=== PATIENT | female | born 2000 | race Caucasian/White ===

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

== ENCOUNTER 2021-06-14 00:01 | Emergency (ER) | payer OTHER ==
[2021-06-14 00:19] VITALS: BP 114/65; PULSE 110; TEMP 97.8; BMI 20.2
[2021-06-14] MEDS ORDERED: morphine CARPU-JECT 2 MG/1 ML DISP.SYRIN IVPUSH ONE (00:55)
[2021-06-14] MEDS ORDERED: SODIUM CHLORIDE 0.9% 500 ML INFUS.BAG IV ONE (00:56)
[2021-06-14] MEDS ORDERED: morphine CARPU-JECT 4 MG/1 ML DISP.SYRIN IVPUSH ONE (01:12)
[2021-06-14] MEDS ORDERED: morphine SULFATE 4 MG/ML VIAL ONE (01:24)
[2021-06-14 01:30] LABS: HEMATOCRIT 21.4 % (32.4-45.2); HEMOGLOBIN 7.3 GM/dL (10.7-15.3); MCH 23.8 pg (25.7-33.7); MCHC 34.3 g/dl (32.0-36.0); MEAN CELL VOLUME 69.5 fl (80-96); MEAN PLT VOLUME 8.2 fl (7.5-11.1); PLATELET COUNT 296 10^3/uL (134-434); RBC 3.09 M/mm3 (3.60-5.2); RDW 15.8 % (11.6-15.6); RETICULOCYTES 5.22 % (0.5-1.5); WHITE BLOOD COUNT 14.8 K/mm3 (4.0-10.0)
[2021-06-14 01:45] LABS: CALCIUM 8.9 mg/dL (8.5-10.1)
[2021-06-14 01:46] LABS: ALBUMIN 3.7 g/dl (3.4-5.0)
[2021-06-14 01:49] LABS: CREATININE 0.5 mg/dL (0.55-1.3)
[2021-06-14 01:51] LABS: BILIRUBIN,TOTAL 2.5 mg/dL (0.2-1); TOT PROT 7.6 g/dl (6.4-8.2)
[2021-06-14 09:52] LABS: ANISOCYTOSIS 1+; MACROCYTOSIS 0; SICKELED CELLS 2+
== END 2021-06-14 02:20 | disposition home or self-care (01) ==
LOC: JER 00:01
PROC: 3E033NZ Introduction of Analgesics, Hypnotics, Sedatives into Peripheral Vein, Percutaneous Approach (ICD-10-PCS; principal; 2021-06-14)
DX: D57.219 Sickle-cell/Hb-C disease with crisis, unspecified (principal)
CPT/HCPCS: 36415; 71046-TC-FY; 80053; 84703; 85025; 85045; 99284-25

== ENCOUNTER 2021-07-14 06:19 | Emergency (ER) | payer OTHER ==
[2021-07-14 06:49] VITALS: BMI 21.2
[2021-07-14] MEDS ORDERED: SODIUM CHLORIDE 1,000 ML IV STA ×2 (07:39→09:05)
[2021-07-14] MEDS ORDERED: ACETAMINOPHEN 1000 MG/100 ML BAG IVPB ONE (07:40)
[2021-07-14] MEDS ORDERED: ACETAMINOPHEN INJECTION 100 ML IVPB ONE (07:58)
[2021-07-14 08:56] LABS: HEMATOCRIT 22.4 % (32.4-45.2); HEMOGLOBIN 7.9 GM/dL (10.7-15.3); MCH 24.2 pg (25.7-33.7); MCHC 35.1 g/dl (32.0-36.0); MEAN CELL VOLUME 68.9 fl (80-96); MEAN PLT VOLUME 9.2 fl (7.5-11.1); PLATELET COUNT 268 10^3/uL (134-434); RBC 3.25 M/mm3 (3.60-5.2); RDW 18.2 % (11.6-15.6); RETICULOCYTES 5.51 % (0.5-1.5); WHITE BLOOD COUNT 14.7 K/mm3 (4.0-10.0)
[2021-07-14] MEDS ORDERED: morphine CARPU-JECT 4 MG/1 ML DISP.SYRIN IVPUSH ONE (09:05)
[2021-07-14 09:06] LABS: EPI CELLS >36 /uL (0-25.1); HYALINE CASTS 1 /uL (0-3.1); URINE APPEARANCE CLEAR; URINE BACTERIA 1211 /uL (0-1359); URINE BILIRUBIN NEGATIVE (NEGATIVE); URINE COLOR YELLOW; URINE GLUCOSE (UA) NEGATIVE (NEGATIVE); URINE KETONE NEGATIVE (NEGATIVE); URINE LEUK ESTERASE 1+ (NEGATIVE); URINE NITRITE NEGATIVE (NEGATIVE); URINE PROTEIN NEGATIVE (NEGATIVE); URINE RBC 5 /uL (0-23.9); URINE WBC 37 /uL (0-25.8)
[2021-07-14 09:15] LABS: CALCIUM 8.6 mg/dL (8.5-10.1)
[2021-07-14 09:16] LABS: ALBUMIN 4.2 g/dl (3.4-5.0); BLOOD UREA NITROGEN 5.8 mg/dL (7-18)
[2021-07-14 09:19] LABS: CREATININE 0.5 mg/dL (0.55-1.3)
[2021-07-14] MEDS ORDERED: morphine SULFATE 4 MG/ML VIAL ONE (09:19)
[2021-07-14 09:21] LABS: TOT PROT 7.9 g/dl (6.4-8.2)
[2021-07-14 10:17] VITALS: BP 105/67; PULSE 87; TEMP 98
[2021-07-14 13:25] LABS: ANISOCYTOSIS 2+; MACROCYTOSIS 0; TARGET CELLS 2+; TEAR DROP CELLS 1+
== END 2021-07-14 10:15 | disposition home or self-care (01) ==
LOC: JERFT 06:19 → JER 06:19 → JERFT 10:15
PROC: 3E033GC Introduction of Other Therapeutic Substance into Peripheral Vein, Percutaneous Approach (ICD-10-PCS; principal; 2021-07-14)
DX: D57.00 Hb-SS disease with crisis, unspecified (principal)
CPT/HCPCS: 36415; 71046-TC-FY; 80053; 81003; 83615; 84703; 85025; 85045; 87086; 99284-25

== ENCOUNTER 2021-12-24 19:07 | Emergency (ER) | payer OTHER ==
[2021-12-24 19:34] VITALS: BP 128/75; PULSE 103; RESP 17; TEMP 98.3; BMI 21.2
[2021-12-24] MEDS ORDERED: LACTATED RINGERS SOLUTION 1000 ML INFUS.BAG IV ONE ×2 (20:48→22:21)
[2021-12-24 21:46] LABS: BASO % 1.2 % (0-2.0); HEMATOCRIT 22.9 % (32.4-45.2); HEMOGLOBIN 7.9 GM/dL (10.7-15.3); LYMPH % 36.3 % (8-40); MCH 24.1 pg (25.7-33.7); MCHC 34.4 g/dl (32.0-36.0); MEAN CELL VOLUME 70.1 fl (80-96); MEAN PLT VOLUME 8.8 fl (7.5-11.1); MONO % 11.6 % (3.8-10.2); NEUT % 47.9 % (42.8-82.8); PLATELET COUNT 322 10^3/uL (134-434); RBC 3.26 M/mm3 (3.60-5.2); RDW 17.8 % (11.6-15.6); WHITE BLOOD COUNT 9.8 K/mm3 (4.0-10.0)
[2021-12-24 21:48] LABS: INR 1.22 (0.83-1.09); PROTHROMBIN TIME (PATIENT) 14.1 SEC (9.7-13.0)
[2021-12-24 21:50] LABS: ACTIVATED PTT 26.9 SECONDS (25.2-36.5)
[2021-12-24 22:01] LABS: ALBUMIN 4.1 g/dl (3.4-5.0); BLOOD UREA NITROGEN 4.1 mg/dL (7-18); CALCIUM 8.8 mg/dL (8.5-10.1)
[2021-12-24 22:04] LABS: CREATININE 0.5 mg/dL (0.55-1.3)
[2021-12-24 22:06] LABS: BILIRUBIN,TOTAL 2.6 mg/dL (0.2-1); TOT PROT 7.8 g/dl (6.4-8.2)
[2021-12-24] MEDS ORDERED: morphine CARPU-JECT 4 MG/1 ML DISP.SYRIN IVPUSH ONE (22:16)
[2021-12-24] MEDS ORDERED: morphine SULFATE 4 MG/ML VIAL ONE (22:23)
[2021-12-24 22:55] LABS: EPI CELLS >36 /uL (0-25.1); HYALINE CASTS 1 /uL (0-3.1); PH,URINE 6.5 (5.0-8.0); URINE APPEARANCE CLEAR; URINE BACTERIA 1389 /uL (0-1359); URINE BILIRUBIN NEGATIVE (NEGATIVE); URINE COLOR YELLOW; URINE GLUCOSE (UA) NEGATIVE (NEGATIVE); URINE KETONE NEGATIVE (NEGATIVE); URINE LEUK ESTERASE TRACE (NEGATIVE); URINE NITRITE NEGATIVE (NEGATIVE); URINE PROTEIN NEGATIVE (NEGATIVE); URINE RBC 14 /uL (0-23.9); URINE WBC 17 /uL (0-25.8)
[2021-12-24 22:56] LABS: HCG,QUALITATIVE URINE Negative
== END 2021-12-25 00:13 | disposition home or self-care (01) ==
LOC: JER 19:07
PROC: 3E033NZ Introduction of Analgesics, Hypnotics, Sedatives into Peripheral Vein, Percutaneous Approach (ICD-10-PCS; principal; 2021-12-24)
DX: D57.219 Sickle-cell/Hb-C disease with crisis, unspecified (principal)
CPT/HCPCS: 36415; 71045-TC-FY; 80053; 81003; 83010; 84484; 84703; 85025; 85045; 85610; 85730; 86850; 86900; 86901; 87086; 99285-25

== ENCOUNTER 2022-04-14 19:12 | Emergency (ER) | payer OTHER ==
[2022-04-14 19:18] VITALS: RESP 20; BMI 21.2
[2022-04-14] MEDS ORDERED: morphine CARPU-JECT 4 MG/1 ML DISP.SYRIN IVPUSH ONE (19:34)
[2022-04-14] MEDS ORDERED: SODIUM CHLORIDE 0.9% 500 ML INFUS.BAG IV ONE (19:35)
[2022-04-14] MEDS ORDERED: morphine SULFATE 4 MG/ML VIAL ONE (19:47)
[2022-04-14 20:07] LABS: EPI CELLS >36 /uL (0-25.1); HYALINE CASTS 3 /uL (0-3.1); PH,URINE 5.5 (5.0-8.0); URINE APPEARANCE CLOUDY; URINE BACTERIA 3647 /uL (0-1359); URINE BILIRUBIN NEGATIVE (NEGATIVE); URINE COLOR YELLOW; URINE GLUCOSE (UA) NEGATIVE (NEGATIVE); URINE KETONE NEGATIVE (NEGATIVE); URINE LEUK ESTERASE 2+ (NEGATIVE); URINE NITRITE NEGATIVE (NEGATIVE); URINE PROTEIN NEGATIVE (NEGATIVE); URINE WBC 319 /uL (0-25.8)
[2022-04-14 20:09] LABS: HCG,QUALITATIVE URINE Negative; URINE RBC 26.2 /uL (0-23.9)
[2022-04-14 20:10] LABS: HEMATOCRIT 23.4 % (32.4-45.2); HEMOGLOBIN 8.2 GM/dL (10.7-15.3); MCH 24.9 pg (25.7-33.7); MCHC 34.8 g/dl (32.0-36.0); MEAN CELL VOLUME 71.7 fl (80-96); MEAN PLT VOLUME 8.9 fl (7.5-11.1); PLATELET COUNT 322 10^3/uL (134-434); RBC 3.27 M/mm3 (3.60-5.2); RETICULOCYTES 6.56 % (0.5-1.5); WHITE BLOOD COUNT 9.8 K/mm3 (4.0-10.0)
[2022-04-14 20:22] LABS: CALCIUM 8.9 mg/dL (8.5-10.1)
[2022-04-14 20:23] LABS: ALBUMIN 4.2 g/dl (3.4-5.0)
[2022-04-14 20:26] LABS: CREATININE 0.5 mg/dL (0.55-1.3)
[2022-04-14 20:27] LABS: BILIRUBIN,TOTAL 2.7 mg/dL (0.2-1); TOT PROT 8.1 g/dl (6.4-8.2)
[2022-04-14 20:36] VITALS: BP 101/70; PULSE 90; TEMP 98.5
[2022-04-14] MEDS ORDERED: CEPHALEXIN MONOHYDRATE 500 MG CAPSULE (UD) PO ONE (20:46)
[2022-04-14] MEDS ORDERED: morphine CARPU-JECT 2 MG/1 ML DISP.SYRIN IVPUSH ONE (20:46)
[2022-04-14] MEDS ORDERED: KETOROLAC TROMETHAMINE 15 MG/ML VIAL IVPUSH ONE (20:47)
[2022-04-14] MEDS ORDERED: CEPHALEXIN MONOHYDRATE 500 MG CAPSULE (UD) ONE (20:48)
[2022-04-14] MEDS ORDERED: KETOROLAC TROMETHAMINE 15 MG/ML VIAL ONE (20:48)
[2022-04-14 20:50] LABS: ANISOCYTOSIS 3+; MACROCYTOSIS 0; SICKELED CELLS 2+; TARGET CELLS 2+; TEAR DROP CELLS 1+
== END 2022-04-14 21:23 | disposition home or self-care (01) ==
LOC: JER 19:12
PROC: 3E033GC Introduction of Other Therapeutic Substance into Peripheral Vein, Percutaneous Approach (ICD-10-PCS; principal; 2022-04-14)
DX: D57.1 Sickle-cell disease without crisis (principal); N39.0 Urinary tract infection, site not specified
CPT/HCPCS: 36415; 71046-TC-FY; 80053; 81003; 83615; 84703; 85025; 85045; 87086; 96374; 96375; 99284-25

== ENCOUNTER 2022-09-12 19:46 | Emergency (ER) | payer OTHER ==
[2022-09-12 19:50] VITALS: BP 123/76; PULSE 108; RESP 18; TEMP 98.8; BMI 21.2
[2022-09-12] MEDS ORDERED: SODIUM CHLORIDE 0.9% 500 ML INFUS.BAG IV ONE (20:15)
[2022-09-12] MEDS ORDERED: morphine CARPU-JECT 4 MG/1 ML DISP.SYRIN IVPUSH ONE (20:15)
[2022-09-12] MEDS ORDERED: morphine SULFATE 4 MG/ML VIAL ONE (20:31)
[2022-09-12 21:17] LABS: POTASSIUM 3.5 mmol/L (3.5-5.1)
[2022-09-12 21:18] LABS: CALCIUM 8.4 mg/dL (8.5-10.1)
[2022-09-12 21:19] LABS: ALBUMIN 3.9 g/dl (3.4-5.0); BLOOD UREA NITROGEN 3.6 mg/dL (7-18)
[2022-09-12 21:22] LABS: CREATININE 0.6 mg/dL (0.55-1.3)
[2022-09-12 21:23] LABS: BILIRUBIN,TOTAL 2.9 mg/dL (0.2-1); TOT PROT 7.8 g/dl (6.4-8.2)
[2022-09-12 21:30] LABS: BASO % 2.1 % (0-2.0); EOS % 2.6 % (0-4.5); HEMATOCRIT 22.9 % (32.4-45.2); HEMOGLOBIN 7.9 GM/dL (10.7-15.3); LYMPH % 45.7 % (8-40); MCH 24.1 pg (25.7-33.7); MCHC 34.4 g/dl (32.0-36.0); MEAN CELL VOLUME 70.1 fl (80-96); MEAN PLT VOLUME 9.1 fl (7.5-11.1); MONO % 10.2 % (3.8-10.2); NEUT % 39.4 % (42.8-82.8); PLATELET COUNT 292 10^3/uL (134-434); RBC 3.27 M/mm3 (3.60-5.2); RDW 17.4 % (11.6-15.6); RETICULOCYTES 5.19 % (0.5-1.5); WHITE BLOOD COUNT 8.6 K/mm3 (4.0-10.0)
[2022-09-12 22:07] LABS: URINE APPEARANCE CLEAR; URINE BILIRUBIN NEGATIVE (NEGATIVE); URINE COLOR YELLOW; URINE GLUCOSE (UA) NEGATIVE (NEGATIVE); URINE KETONE NEGATIVE (NEGATIVE); URINE LEUK ESTERASE NEGATIVE (NEGATIVE); URINE NITRITE NEGATIVE (NEGATIVE); URINE PROTEIN NEGATIVE (NEGATIVE)
[2022-09-12] MEDS ORDERED: KETOROLAC TROMETHAMINE 15 MG/ML VIAL IVPUSH ONE (22:08)
[2022-09-12 22:12] LABS: HCG,QUALITATIVE URINE Negative
[2022-09-12] MEDS ORDERED: KETOROLAC TROMETHAMINE 15 MG/ML VIAL ONE (22:13)
== END 2022-09-12 23:10 | disposition home or self-care (01) ==
LOC: JER 19:46
PROC: 3E0333Z Introduction of Anti-inflammatory into Peripheral Vein, Percutaneous Approach (ICD-10-PCS; principal; 2022-09-12)
PROC: 3E033NZ Introduction of Analgesics, Hypnotics, Sedatives into Peripheral Vein, Percutaneous Approach (ICD-10-PCS; 2022-09-12)
DX: D57.219 Sickle-cell/Hb-C disease with crisis, unspecified (principal)
CPT/HCPCS: 36415; 80053; 81003; 83615; 84703; 85025; 85045; 87086; 93005; 93010; 99284-25

== ENCOUNTER 2022-12-21 10:37 | Emergency (ER) | payer OTHER ==
[2022-12-21 11:01] VITALS: BP 117/64; PULSE 93; RESP 18; TEMP 99; BMI 20.2
[2022-12-21] MEDS ORDERED: morphine CARPU-JECT 4 MG/1 ML DISP.SYRIN IVPUSH ONE (13:01)
[2022-12-21] MEDS ORDERED: morphine SULFATE 4 MG/ML VIAL ONE (13:48)
[2022-12-21 14:04] LABS: INR 1.31 (0.83-1.09); PROTHROMBIN TIME (PATIENT) 15.2 SEC (9.7-13.0)
[2022-12-21 14:07] LABS: ACTIVATED PTT 28.1 SECONDS (25.2-36.5)
[2022-12-21 14:10] LABS: BASO % 2.1 % (0-2.0); EOS % 2.6 % (0-4.5); HEMOGLOBIN 7.5 GM/dL (10.7-15.3); LYMPH % 24.7 % (8-40); MCHC 32.5 g/dl (32.0-36.0); MEAN CELL VOLUME 73.7 fl (80-96); MEAN PLT VOLUME 8.8 fl (7.5-11.1); MONO % 7.2 % (3.8-10.2); NEUT % 63.4 % (42.8-82.8); PLATELET COUNT 315 10^3/uL (134-434); RBC 3.12 M/mm3 (3.60-5.2); RETICULOCYTES 5.58 % (0.5-1.5); WHITE BLOOD COUNT 10.8 K/mm3 (4.0-10.0)
[2022-12-21 14:14] LABS: POTASSIUM 3.9 mmol/L (3.5-5.1)
[2022-12-21 14:16] LABS: ALBUMIN 4.2 g/dl (3.4-5.0)
[2022-12-21 14:17] LABS: MAGNESIUM 2.1 mg/dL (1.8-2.4)
[2022-12-21 14:19] LABS: CREATININE 0.5 mg/dL (0.55-1.3)
[2022-12-21 14:21] LABS: BILIRUBIN,TOTAL 4.5 mg/dL (0.2-1); TOT PROT 8.4 g/dl (6.4-8.2)
[2022-12-21 14:26] LABS: HCG,QUALITATIVE URINE Negative
[2022-12-21 14:27] LABS: EPI CELLS >36 /uL (0-25.1); HYALINE CASTS 0 /uL (0-3.1); PH,URINE 5.5 (5.0-8.0); URINE APPEARANCE CLOUDY; URINE BACTERIA 4024 /uL (0-1359); URINE BILIRUBIN NEGATIVE (NEGATIVE); URINE COLOR DK YELLOW; URINE GLUCOSE (UA) NEGATIVE (NEGATIVE); URINE KETONE NEGATIVE (NEGATIVE); URINE LEUK ESTERASE 2+ (NEGATIVE); URINE NITRITE NEGATIVE (NEGATIVE); URINE PROTEIN NEGATIVE (NEGATIVE); URINE WBC 223 /uL (0-25.8)
[2022-12-21 14:29] LABS: URINE RBC 18 /uL (0-23.9)
== END 2022-12-21 17:07 | disposition home or self-care (01) ==
LOC: JER 10:37
PROC: 3E023GC Introduction of Other Therapeutic Substance into Muscle, Percutaneous Approach (ICD-10-PCS; principal; 2022-12-21)
DX: R05.9 Cough, unspecified (principal); R09.81 Nasal congestion; M54.50 Low back pain, unspecified; M54.6 Pain in thoracic spine; R50.9 Fever, unspecified; R09.3 Abnormal sputum; D57.219 Sickle-cell/Hb-C disease with crisis, unspecified; Z20.822 Contact with and (suspected) exposure to COVID-19
CPT/HCPCS: 0241U-QW; 36415; 71046-TC-FY; 80053; 81003; 83735; 84484; 84703; 85025; 85045; 85610; 85730; 87086; 93005; 93010; 99285-25

== ENCOUNTER 2023-03-05 01:09 | Emergency (ER) | payer OTHER ==
[2023-03-05 01:38] VITALS: BP 139/76; PULSE 104; RESP 20; TEMP 97.1; BMI 20.2
[2023-03-05] MEDS ORDERED: SODIUM CHLORIDE 1,000 ML IV STA (03:07)
[2023-03-05] MEDS ORDERED: morphine CARPU-JECT 4 MG/1 ML DISP.SYRIN IVPUSH ONE (03:07)
[2023-03-05] MEDS ORDERED: morphine SULFATE 4 MG/ML VIAL ONE (03:19)
[2023-03-05 03:52] LABS: BASO % 0.9 % (0-2.0); EOS % 1.5 % (0-4.5); HEMATOCRIT 20.5 % (32.4-45.2); MCH 23.8 pg (25.7-33.7); MCHC 33.8 g/dl (32.0-36.0); MEAN CELL VOLUME 70.3 fl (80-96); MEAN PLT VOLUME 8.7 fl (7.5-11.1); MONO % 10.4 % (3.8-10.2); NEUT % 63.2 % (42.8-82.8); PLATELET COUNT 251 10^3/uL (134-434); RBC 2.92 M/mm3 (3.60-5.2); RDW 16.8 % (11.6-15.6)
[2023-03-05 03:54] LABS: HEMOGLOBIN 6.9 GM/dL (10.7-15.3)
[2023-03-05 03:57] LABS: INR 1.4 (0.83-1.09); PROTHROMBIN TIME (PATIENT) 16.2 SEC (9.7-13.0)
[2023-03-05 04:01] LABS: ACTIVATED PTT 27.6 SECONDS (25.2-36.5)
[2023-03-05 04:06] LABS: POTASSIUM 3.3 mmol/L (3.5-5.1)
[2023-03-05 04:08] LABS: CALCIUM 8.3 mg/dL (8.5-10.1)
[2023-03-05 04:09] LABS: ALBUMIN 3.8 g/dl (3.4-5.0); BLOOD UREA NITROGEN 3.8 mg/dL (7-18)
[2023-03-05 04:12] LABS: CREATININE 0.5 mg/dL (0.55-1.3)
[2023-03-05 04:13] LABS: BILIRUBIN,TOTAL 3.7 mg/dL (0.2-1)
[2023-03-05 04:14] LABS: TOT PROT 7.7 g/dl (6.4-8.2)
== END 2023-03-05 05:50 | disposition home or self-care (01) ==
LOC: JER 01:09
PROC: 3E033GC Introduction of Other Therapeutic Substance into Peripheral Vein, Percutaneous Approach (ICD-10-PCS; principal; 2023-03-05)
PROC: 3E0337Z Introduction of Electrolytic and Water Balance Substance into Peripheral Vein, Percutaneous Approach (ICD-10-PCS; 2023-03-05)
DX: D57.00 Hb-SS disease with crisis, unspecified (principal); M54.9 Dorsalgia, unspecified
CPT/HCPCS: 36415; 71045-TC-FY; 80053; 85025; 85045; 85610; 85730; 93005; 93010; 99285-25

== ENCOUNTER 2023-06-23 17:24 | Emergency (ER) | payer OTHER ==
[2023-06-23 17:33] VITALS: RESP 18; TEMP 99.6; BMI 19.9
[2023-06-23] MEDS ORDERED: LACTATED RINGERS SOLUTION 1000 ML INFUS.BAG IV ONE (18:00)
[2023-06-23] MEDS ORDERED: SODIUM CHLORIDE 0.45% 1,000 ML IV SCH (18:00)
[2023-06-23] MEDS: morphine CARPU-JECT 2 MG/1 ML DISP.SYRIN IVPUSH ONE (18:20)
[2023-06-23] MEDS: SODIUM CHLORIDE 0.45% 1,000 ML IV SCH (18:21)
[2023-06-23 18:30] LABS: HEMATOCRIT 20.9 % (32.4-45.2); HEMOGLOBIN 7.2 GM/dL (10.7-15.3); MCH 24.1 pg (25.7-33.7); MCHC 34.4 g/dl (32.0-36.0); MEAN PLT VOLUME 8.1 fl (7.5-11.1); PLATELET COUNT 286 10^3/uL (134-434); RBC 2.98 M/mm3 (3.60-5.2); RDW 16.3 % (11.6-15.6); RETICULOCYTES 4.76 % (0.5-1.5)
[2023-06-23 18:31] LABS: INR 1.35 (0.83-1.09); PROTHROMBIN TIME (PATIENT) 15.1 SEC (9.7-13.0)
[2023-06-23 18:33] LABS: ACTIVATED PTT 29.1 SECONDS (25.2-36.5)
[2023-06-23 18:43] LABS: POTASSIUM 3.4 mmol/L (3.5-5.1)
[2023-06-23 18:45] LABS: CALCIUM 8.7 mg/dL (8.5-10.1)
[2023-06-23 18:46] LABS: BLOOD UREA NITROGEN 4.5 mg/dL (7-18); MAGNESIUM 1.9 mg/dL (1.8-2.4)
[2023-06-23 18:48] LABS: CREATININE 0.5 mg/dL (0.55-1.3)
[2023-06-23 18:50] LABS: BILIRUBIN,TOTAL 3.3 mg/dL (0.2-1); TOT PROT 7.8 g/dl (6.4-8.2)
[2023-06-23 18:59] LABS: ANISOCYTOSIS 2+; MACROCYTOSIS 0; SICKELED CELLS 1+; TARGET CELLS 1+
[2023-06-23] MEDS ORDERED: POTASSIUM CHLORIDE ORAL LIQUID 20 MEQ/15 ML ONE (19:48)
[2023-06-23] MEDS: POTASSIUM CHLORIDE ORAL LIQUID 20 MEQ/15 ML PO ONE (19:54)
[2023-06-23 19:55] LABS: BILIRUBIN,DIRECT 0.4 mg/dL (0.0-0.2)
[2023-06-23 21:58] VITALS: BP 115/76; PULSE 88
== END 2023-06-23 21:58 | disposition home or self-care (01) ==
LOC: JER 17:24
DX: D57.00 Hb-SS disease with crisis, unspecified (principal); K80.20 Calculus of gallbladder without cholecystitis without obstruction
CPT/HCPCS: 36415; 71046-TC-FY; 71275-TC; 80053; 82248; 83735; 84484; 84703; 85025; 85045; 85610; 85730; 86850; 86900; 86901; 93005; 93010; 99285-25; Q9967

== ENCOUNTER 2023-11-26 10:16 | Emergency (ER) | payer OTHER ==
[2023-11-26 10:27] VITALS: TEMP 98.9; BMI 20.6
[2023-11-26] MEDS ORDERED: MORPHINE SULFATE 2 MG/ML SYRINGE ONE (11:10)
[2023-11-26] MEDS: morphine SULFATE 4 MG/ML VIAL IVPUSH ONE (11:16)
[2023-11-26 11:27] LABS: HEMOGLOBIN 7.3 GM/dL (10.7-15.3); MCH 24.3 pg (25.7-33.7); MCHC 34.9 g/dl (32.0-36.0); MEAN CELL VOLUME 69.7 fl (80-96); MEAN PLT VOLUME 8.3 fl (7.5-11.1); PLATELET COUNT 302 10^3/uL (134-434); RBC 3.02 M/mm3 (3.60-5.2)
[2023-11-26 11:32] LABS: POTASSIUM 3.7 mmol/L (3.5-5.1)
[2023-11-26 11:34] LABS: CALCIUM 9.2 mg/dL (8.5-10.1)
[2023-11-26 11:36] LABS: ALBUMIN 4.4 g/dl (3.4-5.0); BLOOD UREA NITROGEN 6.2 mg/dL (7-18)
[2023-11-26 11:38] LABS: CREATININE 0.5 mg/dL (0.55-1.3)
[2023-11-26 11:39] LABS: TOT PROT 8.1 g/dl (6.4-8.2)
[2023-11-26] MEDS ORDERED: HYDROmorphone HCl 2 MG/ML VIAL ONE (12:03)
[2023-11-26] MEDS: HYDROmorphone HCl 2 MG/ML VIAL IVPUSH ONE (12:08)
[2023-11-26 12:17] LABS: ANISOCYTOSIS 2+; MACROCYTOSIS 0; SICKELED CELLS 2+
[2023-11-26 14:56] VITALS: BP 106/60; PULSE 84; RESP 16
[2023-11-26 15:07] LABS: HIV INTERPRETATION NEGATIVE (NEGATIVE)
== END 2023-11-26 14:56 | disposition home or self-care (01) ==
LOC: JER 10:16
PROC: 3E033NZ Introduction of Analgesics, Hypnotics, Sedatives into Peripheral Vein, Percutaneous Approach (ICD-10-PCS; principal; 2023-11-26)
PROC: 3E033NZ Introduction of Analgesics, Hypnotics, Sedatives into Peripheral Vein, Percutaneous Approach (ICD-10-PCS; 2023-11-26)
DX: D57.00 Hb-SS disease with crisis, unspecified (principal); R51.9 Headache, unspecified; R07.9 Chest pain, unspecified; M54.2 Cervicalgia
CPT/HCPCS: 36415; 71045-TC-FY; 80053; 85025; 85045; 85730; 86803; 86850; 86900; 86901; 87389; 99284-25